=== PATIENT | male | born 1975 | race Caucasian/White ===

== ENCOUNTER 2019-07-28 19:23 | Emergency (ER) | payer OTHER ==
[~2019-07-28] VITALS: Ht 188 cm; Wt 142.9 kg
[2019-07-28] MEDS ORDERED: GABAPENTIN100 MG PO (19:38)
[2019-07-28] MEDS ORDERED: AMLODIPINE BESY10 MG PO (19:38)
[2019-07-28] MEDS ORDERED: POTASSIUM CHLO10 MEQ PO (19:57)
[2019-07-28] MEDS ORDERED: LASIX20 MG PO (19:57)
== END 2019-07-28 20:16 | disposition home or self-care (01) ==
LOC: ED 19:23
DX: R60.0 Localized edema (principal); Z91.19 Patient's noncompliance with other medical treatment and regimen; I10 Essential (primary) hypertension
CPT/HCPCS: 99283-25